=== PATIENT | female | born 1940 | race Asian ===

== ENCOUNTER → 2024-04-15 | Outpatient (CLI) | payer MEDICARE, MEDICAID ==
[~2024-04-15] MED LIST: IOHEXOL 9 MG/ML 500 ML BOTTLE ONE
== END | disposition home or self-care (01) ==
LOC: RADMN 08:20
PROVIDERS: ATTEND Internal Medicine
DX: N28.1 Cyst of kidney, acquired (principal); I70.0 Atherosclerosis of aorta; K80.20 Calculus of gallbladder without cholecystitis without obstruction; J98.4 Other disorders of lung; K44.9 Diaphragmatic hernia without obstruction or gangrene; K57.30 Diverticulosis of large intestine without perforation or abscess without bleeding; K74.60 Unspecified cirrhosis of liver; M47.816 Spondylosis without myelopathy or radiculopathy, lumbar region; K59.00 Constipation, unspecified; R10.9 Unspecified abdominal pain; R10.2 Pelvic and perineal pain
CPT/HCPCS: 74176; Q9967